=== PATIENT | female | born 1975 ===

== ENCOUNTER 2017-06-15 23:58 | Emergency (ER) | payer SELFPAY ==
[2017-06-16 00:15] VITALS: O2SAT 99
--- NOTE | 2017-06-16 00:34 | C.PDOC ---
History Of Present Illness 41 yo female, hx of hypothryoid, asthmapresents with sob. as per pt, symptoms started earlier today. pt reports she had "a cold and reinoso" for a few days. no fevers, mild cough, no n/v/d, no leg swelling, no other complaints Time Seen by Provider: 06/16/17 00:24 Chief Complaint (Nursing): Shortness Of Breath Past Medical History Reviewed: Historical Data, Nursing Documentation, Vital Signs Vital Signs: Last Vital Signs Temp 98.5 F 06/16/17 00:11 Pulse 58 L 06/16/17 00:11 Resp 16 06/16/17 00:45 BP 118/75 06/16/17 00:11 Pulse Ox 99 06/16/17 00:56 - Medical History PMH: Asthma Family History: States: Unknown Family Hx - Social History Hx Alcohol Use: No Hx Substance Use: No - Immunization History Hx Tetanus Toxoid Vaccination: No Hx Influenza Vaccination: No Hx Pneumococcal Vaccination: No Review Of Systems Except As Marked, All Systems Reviewed And Found Negative. Respiratory: Positive for: Cough, Shortness of Breath Physical Exam - Physical Exam Appears: Well, No Acute Distress, Other (sepaking full sentences, i nnad) Skin: Normal Color, Warm, Dry Eye(s): bilateral: Normal Inspection, PERRL, EOMI Nose: Normal Throat: Normal Neck: Normal Cardiovascular: Rhythm Regular Respiratory: Normal Breath Sounds, No Rales, No Rhonchi, No Wheezing Gastrointestinal/Abdominal: Normal Exam Back: Normal Inspection Extremity: Normal ROM, No Swelling ED Course And Treatment - Laboratory Results Result Diagrams: 06/16/17 00:47 06/16/17 00:47 O2 Sat by Pulse Oximetry: 99 Medical Decision Making Medical Decision Making: perc neg. r/o metabolic, infectious, cardiac, anemia, etiology- labs imaging pending ekg nsr [address] twave chagnes normal intervals. 118: perc neg. cxr neg as read by me. pt states she is now asymptomatic. pt speaking full sentneces in nad. advise outpt f/u and return precautions Disposition - Disposition Referrals: Robson Blakely MD [Staff Provider] - [facility] [Outside] [facility] [Outside] [facility] [Outside] Disposition: HOME/ ROUTINE Disposition Time: 01:18 Condition: STABLE Additional Instructions: please follow up with your doctor/clinic and specialist. return to er with worsening symptoms or concerns. Instructions: Dyspnea (ED) Print Language: HAITIAN - Clinical Impression Clinical Impression: Dyspnea
[2017-06-16 00:50] LABS: BASO # 0.1 K/uL (0.0-0.2); BASO % 0.8 % (0.0-2.0); EOS # 0.6 K/uL (0.0-0.7); HEMOGLOBIN 12.8 g/dL (11.0-16.0); LYMPH # 4.7 K/uL (1.0-4.3); LYMPH % 49.8 % (20.0-40.0); MEAN CELL VOLUME 90.5 fL (81.0-99.0); MEAN CORPUSCULAR HEMOGLOBIN 31.3 pg (27.0-31.0); MEAN CORPUSCULAR HGB CONC 34.6 g/dL (33.0-37.0); MONO # 0.6 K/uL (0.0-0.8); MONO % 6.1 % (0.0-10.0); NEUT # 3.5 K/uL (1.8-7.0); NEUT % 37.3 % (50.0-75.0); RBC 4.08 Mil/uL (3.80-5.20); RED CELL DISTRIBUTION WIDTH 11.9 % (11.5-14.5); WHITE BLOOD COUNT 9.4 K/uL (4.8-10.8)
[2017-06-16 00:56] LABS: HCG,QUALITATIVE URINE NEGATIVE (NEGATIVE)
[2017-06-16 00:58] LABS: INR 0.9; PROTHROMBIN TIME 10.2 SECONDS (9.7-12.2)
[2017-06-16 00:59] LABS: ALBUMIN 3.8 g/dL (3.5-5.0)
[2017-06-16 01:02] LABS: AST/SGOT 28 U/L (14-36); GFR AFRICAN-AMERICAN > 60; GFR NON-AFRICAN AMERICAN > 60
[2017-06-16 01:03] LABS: ALB/GLOB RATIO 1.1 (1.0-2.1); ALT/SGPT 34 U/L (9-52); BLOOD UREA NITROGEN 18 mg/dL (7-17); CALCIUM 8.4 mg/dl (8.6-10.4)
[2017-06-16 01:05] LABS: SQUAMOUS EPITHIAL 5 /hpf (0-5); URINE BILIRUBIN NEGATIVE (NEGATIVE); URINE BLOOD NEGATIVE (NEGATIVE); URINE CLARITY Clear (Clear); URINE COLOR Yellow (YELLOW); URINE GLUCOSE (UA) NORMAL (Normal); URINE LEUKOCYTE ESTERASE NEG Leu/uL (Negative); URINE NITRATE NEGATIVE (NEGATIVE); URINE PROTEIN NEGATIVE (NEGATIVE); URINE UROBILINOGEN NORMAL mg/dL (0.2-1.0)
[2017-06-16 01:11] LABS: B-TYPE NATRIURETIC PEPTIDE 65.2 pg/mL (0-450)
[2017-06-16 01:33] VITALS: BP 90/60; PULSE 60; RESP 18; TEMP 97.5
--- NOTE | 2017-06-16 09:07 | RAD ---
HISTORY: chest pain COMPARISON: No prior. TECHNIQUE: Chest PA and lateral FINDINGS: LUNGS: No active pulmonary disease. PLEURA: No significant pleural effusion identified. No pneumothorax apparent. CARDIOVASCULAR: Normal. OSSEOUS STRUCTURES: No significant abnormalities. VISUALIZED UPPER ABDOMEN: Normal. OTHER FINDINGS: None. IMPRESSION: No active disease.
== END 2017-06-16 01:42 | disposition home or self-care (01) ==
LOC: C.ER 23:58
DX: R06.00 Dyspnea, unspecified (principal)

== ENCOUNTER 2018-04-12 20:34 | Emergency (ER) | payer SELFPAY ==
[2018-04-12 20:56] VITALS: BP 119/79; PULSE 76; RESP 20; TEMP 98.8; O2SAT 100
--- NOTE | 2018-04-12 21:17 | C.PDOC ---
History Of Present Illness 42yo female, with history of asthma and hypothyroidsm, presents to ED with complaints of sore throat for the past 3 days. She also reports an associated fever, which started this morning. She denies any trouble breathing, shortness of breath, difficulty swallowing, or chest pain. PMD: [facility] Time Seen by Provider: 04/12/18 20:58 Chief Complaint (Nursing): ENT Problem History Per: Patient History/Exam Limitations: no limitations Onset/Duration Of Symptoms: Days Current Symptoms Are (Timing): Still Present Location Of Pain: Throat Associated Symptoms: Fever, Sore Throat Additional History Per: Patient Past Medical History Reviewed: Historical Data, Nursing Documentation, Vital Signs Vital Signs: Last Vital Signs Temp 98.8 F 04/12/18 20:53 Pulse 76 04/12/18 20:53 Resp 20 04/12/18 21:58 BP 119/79 04/12/18 20:53 Pulse Ox 100 04/12/18 21:52 - Medical History PMH: Asthma, Hypothyroidism Surgical History: No Surg Hx Family History: States: No Known Family Hx, Unknown Family Hx - Social History Hx Alcohol Use: No Hx Substance Use: No - Immunization History Hx Tetanus Toxoid Vaccination: No Hx Influenza Vaccination: No Hx Pneumococcal Vaccination: No Review Of Systems Except As Marked, All Systems Reviewed And Found Negative. Constitutional: Positive for: Fever ENT: Positive for: Throat Pain Cardiovascular: Negative for: Chest Pain Respiratory: Negative for: Shortness of Breath Physical Exam - Physical Exam Appears: Non-toxic, No Acute Distress Skin: Normal Color, Warm, Dry Head: Atraumatic, Normacephalic Eye(s): bilateral: Normal Inspection, PERRL, EOMI Ear(s): Bilateral: Normal Nose: Normal Oral Mucosa: Moist Throat: Erythema, Exudate (left > right), No Drooling, No Mass, Other (tonsils are not touching) Neck: Normal ROM, Supple Lymphatic: Adenopathy (submandibular) Chest: Symmetrical Cardiovascular: Rhythm Regular Respiratory: Normal Breath Sounds, Other (speaking full sentences) Extremity: Normal ROM Neurological/Psych: Oriented x3, Normal Speech ED Course And Treatment O2 Sat by Pulse Oximetry: 100 (RA) Pulse Ox Interpretation: Normal Progress Note: Patient given viscous lidocaine, amoxicillin and motrin 600 mg PO. Upon re-evaluation, patient reports improvement in pain. Lungs CTA. Tolerating PO. No difficulty breathing or swallowing. Patient instructed to take medications as prescribed and informed to follow up with PMD in 2-3 days. Disposition - Disposition Disposition: HOME/ ROUTINE Disposition Time: 21:51 Condition: STABLE Additional Instructions: Vaya a connelly mdico o la clnica en 2-5 portillo sin falta, para mas evaluacin. [facility] los medicamentos shilo indicado. Volver a la mary de emergencia en cualquier momento si los sntomas persisten o empeoran. Prescriptions: Amoxicillin 875 mg PO BID #20 tablet Ibuprofen [Motrin] 600 mg PO Q6 PRN #20 tab PRN Reason: Pain, Mild (1-3) Instructions: Sore Throat, Adult (DC) Forms: [employer] (Jamaican) - Clinical Impression Clinical Impression: Pharyngitis - PA / CLAIMS CONSULTANT / Resident Statement MD/DO has reviewed & agrees with the documentation as recorded. - Scribe Statement The provider has reviewed the documentation as recorded by the Scribe (Katelyn Pérez) Provider Attestation: All medical record entries made by the Scribe were at my direction and personally dictated by me. I have reviewed the chart and agree that the record accurately reflects my personal performance of the history, physical exam, medical decision making, and the department course for this patient. I have also personally directed, reviewed, and agree with the discharge instructions and disposition.
== END 2018-04-12 21:58 | disposition home or self-care (01) ==
LOC: C.ER 20:34
DX: J02.9 Acute pharyngitis, unspecified (principal)

== ENCOUNTER 2019-01-10 07:55 | Outpatient (CLI) | payer OTHER | END 2019-01-10 07:56 | disposition home or self-care (01) | LOC: C.USIC 07:55 | DX: Z01.419 Encounter for gynecological examination (general) (routine) without abnormal findings (principal) ==

== ENCOUNTER 2019-02-23 08:18 | Outpatient (CLI) | payer OTHER | END 2019-02-23 08:19 | disposition home or self-care (01) | LOC: C.MAMMO 08:19 ==

== ENCOUNTER 2019-03-02 09:00 | Outpatient (CLI) | payer OTHER | END 2019-03-02 09:01 | disposition home or self-care (01) | LOC: C.USIC 09:01 ==